=== PATIENT | female | born 1950 | race Caucasian/White ===

== ENCOUNTER 2021-02-18 06:11 | Day surgery (SDC) | payer MEDICARE, OTHER ==
[~2021-02-18 06:11] MED LIST: Lactated Ringers 1,000 ML IV SCH; Lidocaine 1%/Sod Bicarbonate in NS 8.4% 1 ML Syringe IDERM PRN; Sodium Chloride 0.9% 10 ML Syringe FLUSH PRN
[2021-02-18] MEDS ORDERED: Lidocaine 1% 30 ML SDV ONE (06:26)
[2021-02-18] MEDS ORDERED: Triamcinolone Acetonide 40 MG/ML 1 ML SDV ONE (06:26)
[2021-02-18] MEDS ORDERED: Clindamycin Phosphate in D5W 900 MG in Premix Bag 1 BAG IV ONE ×2 (06:30)
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
[2021-02-18] MEDS ORDERED: Lidocaine 1% 4 ML ONE (06:57)
[2021-02-18] MEDS ORDERED: Propofol 200 MG/20 ML SDV ONE (06:57)
[2021-02-18] MEDS ORDERED: Midazolam 1 MG/ML 2 ML SDV ONE ×2 (06:57→06:58)
[2021-02-18] MEDS ORDERED: fentaNYL 100 MCG/2 ML SDV ONE (06:57)
[2021-02-18] MEDS: Bupivacaine 0.25% 10 ML SDV ONE ×2 (07:21→07:30)
[2021-02-18] MEDS ORDERED: Ketorolac 15 MG/ML SDV ONE (07:30)
--- NOTE | 2021-02-18 07:43 | PCM.OPNOTE ---
- General Post-Op/Procedure Note Date of Surgery/Procedure: 02/18/21 Operative Procedure(s): right carpal tunnel release with left carpal tunnel injection Pre Op Diagnosis: bilateral carpal tunnel syndrome Post-Op Diagnosis: Same Anesthesia Technique: Local, MAC Primary Surgeon: Justin Stephen Anesthesia Provider: Chidi Hand Radiology Manager: Ashley Daigle in mLs: 5 Complications: None Condition: Good
--- NOTE | 2021-02-18 07:46 | PCM48HPAN ---
Post Anesthesia Note - EVALUATION WITHIN 48HRS OF ANESTHETIC Vital Signs in Normal Range: Yes Patient Participated in Evaluation: Yes Respiratory Function Stable: Yes Airway Patent: Yes Cardiovascular Function Stable: Yes Hydration Status Stable: Yes Pain Control Satisfactory: Yes Nausea and Vomiting Control Satisfactory: Yes Mental Status Recovered: Yes Vital Signs: Last Vital Signs Temp 99.1 F 02/18/21 05:57 Pulse 81 02/18/21 05:57 Resp 18 02/18/21 05:57 BP 138/75 02/18/21 05:57 Pulse Ox 95 02/18/21 05:57 0740 85 15 97.8 94% 138/65
--- NOTE | 2021-03-04 09:23 | OR ---
DATE OF OPERATION: 02/18/2021 SURGEON: Justin Stephen MD OPERATION PERFORMED: Right carpal tunnel release with left carpal tunnel injection. PREOPERATIVE DIAGNOSIS: Bilateral carpal tunnel syndrome. POSTOPERATIVE DIAGNOSIS: Bilateral carpal tunnel syndrome. ANESTHESIA: Local MAC. ANESTHESIA PROVIDER: Chidi Hand CRNA RN FACULTY: Ashley Daigle PA-C. ESTIMATED BLOOD LOSS: Less than 5 mL. COMPLICATIONS: None. CONDITION: Stable. DESCRIPTION OF PROCEDURE: The patient was identified in the preop holding area. Proper site was marked and identified by the surgeon. The patient was taken back to the operating theater where after adequate anesthesia, the patient's right upper extremity was sterilely prepped and draped in the usual sterile fashion. OR time-out was performed. The patient did not receive antibiotics and it is not indicated for soft tissue hand procedure. At this time, the right upper extremity was exsanguinated and an Esmarch was used as a tourniquet on the forearm. At this time, using 1% lidocaine without epinephrine and 0.25% Marcaine without epinephrine, the palmar cutaneous branch of the median nerve was anesthetized and then the incisional site was anesthetized using Rodrigez cardinal line and ulnar border of the fourth digit as reference. Once this had set up, an incision was made. Blunt dissection was taken down to the palmar cutaneous fascia. Palmar cutaneous fascia was incised with a [place] blade. At this time, the transverse carpal ligament was identified. A small rent was made in the transverse carpal ligament with a [place] blade under direct visualization. Resection of the transverse carpal ligament was done distally using tenotomy scissors making sure to stop short of the palmar arch. At this time, attention was turned proximally after it was found to be adequately released. Using the tenotomy scissors keeping the tips ulnar to protect the palmar cutaneous branch of the median nerve, the superficial forearm fascia as well as the transverse carpal ligament were resected proximally. It was found to be adequate release both proximally and distally. At this time, adequate saline was irrigated through the wound. 4-0 nylon sutures were used closure of the skin. The patient was placed in a sterile soft dressing and sent to PACU in stable condition. Under sterile technique, 1 mL of 40 mg Kenalog and 2 mL of 0.25% Marcaine were injected in left carpal tunnel. The patient tolerated all procedures well. ARVIND /[id number]
== END 2021-02-18 08:13 | disposition home or self-care (01) ==
LOC: JD.SDS 06:11
PROVIDERS: ATTEND Orthopaedic Surgery
DX: G56.03 Carpal tunnel syndrome, bilateral upper limbs (principal); I10 Essential (primary) hypertension; I34.0 Nonrheumatic mitral (valve) insufficiency; R94.31 Abnormal electrocardiogram [ECG] [EKG]; Z79.899 Other long term (current) drug therapy; E78.00 Pure hypercholesterolemia, unspecified; E66.9 Obesity, unspecified; Z68.41 Body mass index [BMI] 40.0-44.9, adult
CPT/HCPCS: 20526; 64721; J1885; J2250; J2704; J3010; J3301; J3490; J7120; 01810; 99100

== ENCOUNTER 2022-02-17 06:12 | Day surgery (SDC) | payer MEDICARE, OTHER ==
[~2022-02-17 06:12] MED LIST changes: +Sodium Chloride 0.9% 10 ML Syringe FLUSH SCH
[2022-02-17] MEDS ORDERED: Bupivacaine 0.25% 10 ML SDV ONE (06:22)
[2022-02-17] MEDS ORDERED: Propofol 200 MG/20 ML SDV ONE (06:32)
[2022-02-17] MEDS ORDERED: Midazolam 1 MG/ML 2 ML SDV ONE (06:33)
[2022-02-17] MEDS ORDERED: fentaNYL 100 MCG/2 ML SDV ONE (06:33)
[2022-02-17] MEDS ORDERED: Lidocaine 1% 5 ML VIAL ONE (06:33)
[2022-02-17] MEDS: Lidocaine 1% 30 ML SDV ONE ×2 (06:46→07:19)
[2022-02-17] MEDS ORDERED: Ondansetron 4 MG/2 ML SDV ONE (07:07)
[2022-02-17] MEDS ORDERED: Clindamycin Phosphate in D5W 900 MG in Premix Bag 1 BAG IV ONE ×2 (07:15)
[2022-02-17] MEDS ORDERED: Ketorolac 15 MG/ML SDV ONE (07:20)
== END 2022-02-17 08:25 | disposition home or self-care (01) ==
LOC: JD.SDS 06:12
PROVIDERS: ATTEND Orthopaedic Surgery
DX: G56.12 Other lesions of median nerve, left upper limb (principal); I10 Essential (primary) hypertension; E78.5 Hyperlipidemia, unspecified; R06.09 Other forms of dyspnea; F32.A Depression, unspecified; E78.00 Pure hypercholesterolemia, unspecified; R94.31 Abnormal electrocardiogram [ECG] [EKG]; E66.9 Obesity, unspecified; R74.8 Abnormal levels of other serum enzymes; Z78.9 Other specified health status; Z79.899 Other long term (current) drug therapy; Z88.1 Allergy status to other antibiotic agents; Z88.8 Allergy status to other drugs, medicaments and biological substances; Z98.890 Other specified postprocedural states; Z68.41 Body mass index [BMI] 40.0-44.9, adult
CPT/HCPCS: 64721; J1885; J2250; J2405; J2704; J3010; J3490; J7120; 01810; 99100

== ENCOUNTER 2024-06-19 08:08 | Day surgery (SDC) | payer MEDICARE, OTHER ==
[~2024-06-19 08:08] MED LIST changes: -Lactated Ringers 1,000 ML IV SCH; -Lidocaine 1%/Sod Bicarbonate in NS 8.4% 1 ML Syringe IDERM PRN
[2024-06-19] MEDS: Lactated Ringers 1,000 ML IV SCH (08:25)
[2024-06-19] MEDS ORDERED: Propofol 200 MG/20 ML SDV ONE ×2 (08:38→08:51)
== END 2024-06-19 10:06 | disposition home or self-care (01) ==
LOC: JD.SDS 08:08
PROVIDERS: ATTEND Surgery
DX: Z12.11 Encounter for screening for malignant neoplasm of colon (principal); K63.5 Polyp of colon; K64.8 Other hemorrhoids; F33.9 Major depressive disorder, recurrent, unspecified; K21.9 Gastro-esophageal reflux disease without esophagitis; E78.00 Pure hypercholesterolemia, unspecified; Z79.899 Other long term (current) drug therapy; Z88.8 Allergy status to other drugs, medicaments and biological substances
CPT/HCPCS: 45380; 88305; J2704; J7120; 00811; 99100

== ENCOUNTER 2025-01-19 16:32 | Emergency (ER) | payer MEDICARE, OTHER | END 2025-01-19 18:05 | disposition home or self-care (01) | LOC: JD.ED 16:32 | DX: S52.502A Unspecified fracture of the lower end of left radius, initial encounter for closed fracture (principal); Z88.8 Allergy status to other drugs, medicaments and biological substances; Z79.82 Long term (current) use of aspirin; Z79.899 Other long term (current) drug therapy; Z90.49 Acquired absence of other specified parts of digestive tract; X58.XXXA Exposure to other specified factors, initial encounter | CPT/HCPCS: 73100-26-LT; 73100-LT; 99283 ==